=== PATIENT | male | born 1980 | race Asian ===

== ENCOUNTER 2020-08-03 12:32 | Outpatient (REF) | payer OTHER, SELFPAY ==
--- NOTE | 2020-08-03 12:41 | US_ITS ---
EXAMINATION: UNILATERAL TRIPLEX SCANNING OF THE LEFT LOWER EXTREMITY CLINICAL INFORMATION: Left lower extremity swelling. History of DVT COMPARISON: 10/30/2019 TECHNIQUE: Color-flow triplex imaging with spectral analysis and compression Doppler were performed on the left lower extremity. FINDINGS: Respiratory variation, normal compression and augmented flow are noted throughout the lower extremity. The visualized common femoral vein, superficial femoral vein, profunda femoral vein, popliteal vein and mid calf peroneal and posterior tibial venous segments show no evidence of deep venous thrombosis. There is no Loredo's cyst. IMPRESSION: Chronic changes of the femoral vein which may represent recanalization from previous thrombosis. This does not appear significantly changed. No acute deep venous thrombosis.
== END 2020-08-03 12:33 | disposition home or self-care (01) ==
LOC: HO.US 12:32
PROVIDERS: Visit Provider Internal Medicine Medical Oncology
DX: M79.89 Other specified soft tissue disorders (principal); M79.605 Pain in left leg; Z86.718 Personal history of other venous thrombosis and embolism
CPT/HCPCS: 93971

== ENCOUNTER 2020-09-06 10:42 | Outpatient (REF) | payer OTHER, SELFPAY ==
[2020-09-06 14:47] LABS: Cholesterol 124 mg/dL; HDL Cholesterol 37 mg/dL; LDL Cholesterol Calculated 65 mg/dl; Triglycerides 114 mg/dL
== END 2020-09-06 10:43 | disposition home or self-care (01) ==
LOC: HO.HMGCLDS 10:42
PROVIDERS: PCP Nurse Practitioner Family; Visit Provider Nurse Practitioner Family
DX: E78.5 Hyperlipidemia, unspecified (principal)
CPT/HCPCS: 80061

== ENCOUNTER 2021-03-10 11:41 | Outpatient (REF) | payer OTHER, SELFPAY ==
--- NOTE | ~2021-03-10 | US_ITS ---
EXAMINATION: US VENOUS ULTRASOUND WITH DOPPLER LOWER EXTREMITY, BILATERAL CLINICAL INFORMATION: Bilateral leg pain and swelling. COMPARISON: None TECHNIQUE: Ultrasound of the deep veins is performed from the hip to the calf with compression sonography and color and pulse Doppler assessment. Spectral analysis with color-flow imaging is performed. FINDINGS: RIGHT: There is normal venous compression and respiratory variation and augmented flow. The visualized common femoral vein, superficial femoral vein, profunda femoral vein, popliteal vein, and the trifurcation region shows no evidence of deep venous thrombosis. There is no significant popliteal fossa cyst. LEFT: There is normal venous compression and respiratory variation and augmented flow. The visualized common femoral vein, superficial femoral vein, and profunda small maintained shows no evidence of deep venous thrombosis. There are chronic changes in the left profunda and femoral veins proximal to distal thigh which appear to have progressed since the last exam. There is acute DVT in the popliteal vein not previously seen. There is no significant popliteal fossa cyst. If the patient's symptoms persist, followup ultrasound in 5 days 7 days might be of value to exclude proximal propagation from a non-visualized calf vein. US/US venous duplex LE BI IMPRESSION: No DVT demonstrated in the right lower extremity. There is chronic DVT in the left profunda and femoral vein proximal to thigh which appears to have progressed since the previous study. There is acute thrombus in the left popliteal vein, not previously seen. Preliminary results were called to Dr. Sanders by phone at 1:40 PM. Patient was directed to her office subsequently.
== END 2021-03-10 11:42 | disposition home or self-care (01) ==
LOC: HO.US 11:41
PROVIDERS: Visit Provider Internal Medicine Medical Oncology
DX: I82.402 Acute embolism and thrombosis of unspecified deep veins of left lower extremity (principal); Z86.718 Personal history of other venous thrombosis and embolism
CPT/HCPCS: 93970

== ENCOUNTER 2021-03-30 08:19 | Outpatient (REF) | payer OTHER, SELFPAY ==
[2021-03-30 12:22] LABS: Alanine Aminotransferase 53 U/L (0-40); Albumin Level 4.5 g/dL (3.5-5.0); Alkaline Phosphatase 84 U/L (39-117); Anion Gap 12 (12-20); Aspartate Amino Transferase 27 U/L (5-37); Bilirubin Total 0.8 mg/dL (0.0-1.0); Blood Urea Nitrogen 12 mg/dL (9-16); Calcium 9.4 mg/dL (8.4-10.2); Carbon Dioxide 28 mmol/L (22-29); Chloride 105 mmol/L (96-108); Cholesterol 186 mg/dL; Estimated Glomerular Filt Rate > 60; Glucose Fasting 101 mg/dL (60-99); HDL Cholesterol 36 mg/dL; LDL Cholesterol Calculated 106 mg/dl; Potassium 4.5 mmol/L (3.3-5.1); Sodium 140 mmol/L (135-145); Total Protein 7.6 g/dL (6.5-8.0); Triglycerides 220 mg/dL
[2021-03-30 12:31] LABS: TSH reflex Free T4 2.68 uIU/mL (0.32-4.0)
[2021-04-04 01:26] LABS: Testosterone, Total 277 ng/dL (250-1100)
== END 2021-03-30 08:20 | disposition home or self-care (01) ==
LOC: HO.HMGCLDS 08:19
PROVIDERS: PCP Nurse Practitioner Family; Visit Provider Nurse Practitioner Family
DX: Z00.00 Encounter for general adult medical examination without abnormal findings (principal); R68.82 Decreased libido
CPT/HCPCS: 36415; 80053; 80061; 84403; 84443

== ENCOUNTER 2021-04-04 11:42 | Outpatient (REF) | payer OTHER, SELFPAY ==
[2021-04-04 14:10] LABS: MANUAL DIFF FLAG NO
[2021-04-04 14:19] LABS: Basophils Absolute Auto 0.1 X10*3/uL (0.0-0.2); Basophils Percent Auto 0.7 % (0-2); Eosinophils Absolute Auto 0.2 X10*3/uL (0.0-0.4); Eosinophils Percent Auto 2.9 % (0-4); Hematocrit 44.5 % (42-52); Hemoglobin 15.3 g/dl (14.0-18.0); Imm Gran Abs Auto 0.05 X10*3/uL (0.00-0.03); Imm Gran Pct Auto 0.6 % (0.0-0.4); Lymphocytes Absolute Auto 2.1 X10*3/uL (1.2-4.9); Lymphocytes Percent Auto 25.8 % (20-40); Mean Corpuscular HGB Conc 34.4 g/dl (31.0-36.0); Mean Corpuscular Hemoglobin 29.7 pg (27.0-33.0); Mean Corpuscular Volume 86.4 fL (80-98); Mean Platelet Volume 12.1 fL (9.4-12.4); Monocytes Absolute Auto 0.7 X10*3/uL (0.1-1.2); Monocytes Percent Auto 8.3 % (2-11); Neutrophils Absolute Auto 5.1 X10*3/uL (2.0-8.3); Neutrophils Percent Auto 61.7 % (45-73); Platelet Count 219 X10*3/uL (160-400); Red Blood Count 5.15 X10*6/uL (4.60-5.80); Red Cell Distribution Width 12.7 % (11.0-16.0); White Blood Count 8.2 X10*3/uL (4.8-10.8)
[2021-04-04 14:31] LABS: D Dimer < 200 NG/ML
[2021-04-04 14:42] LABS: Alanine Aminotransferase 44 U/L (0-40); Albumin Level 4.3 g/dL (3.5-5.0); Alkaline Phosphatase 87 U/L (39-117); Anion Gap 13 (12-20); Aspartate Amino Transferase 25 U/L (5-37); Bilirubin Total 0.7 mg/dL (0.0-1.0); Blood Urea Nitrogen 13 mg/dL (9-16); Calcium 9.5 mg/dL (8.4-10.2); Carbon Dioxide 26 mmol/L (22-29); Chloride 103 mmol/L (96-108); Estimated Glomerular Filt Rate > 60; Glucose Random 176 mg/dL (60-115); Sodium 138 mmol/L (135-145); Total Protein 7.5 g/dL (6.5-8.0)
[2021-04-05 09:26] LABS: HBS Num1 325.83 mIU/mL (0-7.99); Hepatitis A Antibody IgM 0.79 Index (0-0.79); ~Hepatitis A Antibody IgM Nonreactive (Nonreactive); ~Hepatitis B Surface Antibody REACTIVE (Nonreactive)
[2021-04-05 10:02] LABS: HBc Num1 0.14 S/CO (0.00-0.79); Hepatitis B Core Antibody Nonreactive (Nonreactive); Hepatitis B Surface Antigen Negative (Negative); ~HepC Num1 0.11 S/CO (0.00-0.79); ~Hepatitis C Antibody Nonreactive (Nonreactive)
== END 2021-04-04 11:43 | disposition home or self-care (01) ==
LOC: HO.HMGCLDS 11:42
PROVIDERS: Internal Medicine Medical Oncology; PCP Nurse Practitioner Family; Visit Provider Nurse Practitioner Family
DX: I82.4Z9 Acute embolism and thrombosis of unspecified deep veins of unspecified distal lower extremity (principal); R74.8 Abnormal levels of other serum enzymes
CPT/HCPCS: 36415; 80053; 85025; 85379; 86704; 86706; 86709; 86803; 87340

== ENCOUNTER 2021-04-05 10:32 | Outpatient (REF) | payer OTHER, SELFPAY ==
--- NOTE | ~2021-04-05 | US_ITS ---
EXAMINATION: US ABDOMEN COMPLETE CLINICAL INFORMATION: Elevated liver enzymes. COMPARISON: CTA chest 05/05/2018 TECHNIQUE: Real-time imaging of the abdominal viscera. FINDINGS: PANCREAS: Normal. ABDOMINAL AORTA: The proximal, mid, and distal segments are normal in caliber. INFERIOR VENA CAVA: Visualized portions are normal. LIVER: Diffuse increased hepatic echogenicity. No focal hepatic lesion. There is no intrahepatic biliary duct dilatation seen. GALLBLADDER: Normal. The gallbladder is physiologically distended without evidence of stones, sludge, polyps, wall thickening or pericholecystic fluid. COMMON BILE DUCT: Normal in caliber measuring 0.40 cm in diameter. RIGHT KIDNEY: Normal. No hydronephrosis. No renal calculi or focal parenchymal lesions. The kidney measures 11.9 cm in maximum dimension. LEFT KIDNEY: Normal. No hydronephrosis. No renal calculi or focal parenchymal lesions. The kidney measures 11.6 cm in maximum dimension. SPLEEN: Normal. The spleen measures 11.1 cm in maximum dimension. FREE FLUID: None. US/US abdomen complete IMPRESSION: 1. There is generalized increase in hepatic echotexture, consistent with fatty infiltration or hepatocellular disease. Please correlate clinically. No focal hepatic mass or intrahepatic biliary duct dilatation is seen. 2. Otherwise unremarkable study.
== END 2021-04-05 10:33 | disposition home or self-care (01) ==
LOC: HO.HMGCX 10:32
PROVIDERS: PCP Internal Medicine; Visit Provider Nurse Practitioner Family
DX: R74.8 Abnormal levels of other serum enzymes (principal)
CPT/HCPCS: 76700

== ENCOUNTER 2021-06-02 13:45 | Outpatient (REF) | payer MEDICAID, SELFPAY ==
--- NOTE | ~2021-06-02 | US_ITS ---
EXAMINATION: US VENOUS ULTRASOUND WITH DOPPLER LOWER EXTREMITY, LEFT CLINICAL INFORMATION: Recurrent DVT follow-up. COMPARISON: March 10, 2021 and studies dating back to March 05, 2017 TECHNIQUE: Ultrasound of the deep veins is performed from the hip to the calf with compression sonography and color and pulse Doppler assessment. Spectral analysis with color-flow imaging is performed. FINDINGS: There is normal venous compression and respiratory variation and augmented flow. There are changes of chronic deep venous thrombosis seen within the proximal superficial femoral vein and extending to the popliteal vein showing wall thickening and synechiae. No evidence of acute deep venous thrombosis. There is no significant popliteal fossa cyst. No popliteal artery aneurysm. US/US venous duplex LE LT IMPRESSION: No acute DVT demonstrated in the left lower extremity. Findings consistent with old left lower extremity DVT.
== END 2021-06-02 13:46 | disposition home or self-care (01) ==
LOC: HO.HMGCX 13:45
PROVIDERS: PCP Nurse Practitioner Family; Visit Provider Internal Medicine Medical Oncology
DX: I82.4Z9 Acute embolism and thrombosis of unspecified deep veins of unspecified distal lower extremity (principal)
CPT/HCPCS: 93971

== ENCOUNTER → 2021-06-27 14:47 | Outpatient (BNVA) | payer OTHER, SELFPAY | PROVIDERS: PCP Nurse Practitioner Family; Visit Provider Internal Medicine | DX: Z86.718 Personal history of other venous thrombosis and embolism (principal); Z51.81 Encounter for therapeutic drug level monitoring; Z79.01 Long term (current) use of anticoagulants | CPT/HCPCS: 85610; 99202 ==

== ENCOUNTER → 2021-06-30 14:42 | Outpatient (BNVA) | payer OTHER, SELFPAY | PROVIDERS: PCP Nurse Practitioner Family; Visit Provider Internal Medicine | DX: Z86.718 Personal history of other venous thrombosis and embolism (principal); Z51.81 Encounter for therapeutic drug level monitoring; Z79.01 Long term (current) use of anticoagulants | CPT/HCPCS: 85610; 99211 ==

== ENCOUNTER → 2021-07-04 14:05 | Outpatient (BNVA) | payer OTHER, SELFPAY | PROVIDERS: PCP Nurse Practitioner Family; Visit Provider Internal Medicine | DX: Z86.718 Personal history of other venous thrombosis and embolism (principal); Z51.81 Encounter for therapeutic drug level monitoring; Z79.01 Long term (current) use of anticoagulants | CPT/HCPCS: 85610; 99211 ==

== ENCOUNTER → 2021-07-06 08:43 | Outpatient (BNVA) | payer OTHER, SELFPAY | PROVIDERS: PCP Nurse Practitioner Family; Visit Provider Internal Medicine | DX: Z86.718 Personal history of other venous thrombosis and embolism (principal); Z51.81 Encounter for therapeutic drug level monitoring; Z79.01 Long term (current) use of anticoagulants | CPT/HCPCS: 85610; 99211 ==

== ENCOUNTER → 2021-07-10 13:54 | Outpatient (BNVA) | payer OTHER, SELFPAY | PROVIDERS: PCP Nurse Practitioner Family; Visit Provider Internal Medicine | DX: Z86.718 Personal history of other venous thrombosis and embolism (principal); Z51.81 Encounter for therapeutic drug level monitoring; Z79.01 Long term (current) use of anticoagulants | CPT/HCPCS: 85610; 99211 ==

== ENCOUNTER → 2021-07-17 08:32 | Outpatient (BNVA) | payer OTHER, SELFPAY | PROVIDERS: PCP Nurse Practitioner Family; Visit Provider Internal Medicine | DX: Z86.718 Personal history of other venous thrombosis and embolism (principal); Z51.81 Encounter for therapeutic drug level monitoring; Z79.01 Long term (current) use of anticoagulants | CPT/HCPCS: 85610; 99211 ==

== ENCOUNTER → 2021-07-27 08:21 | Outpatient (BNVA) | payer OTHER, SELFPAY | PROVIDERS: PCP Nurse Practitioner Family; Visit Provider Internal Medicine | DX: Z86.718 Personal history of other venous thrombosis and embolism (principal); Z51.81 Encounter for therapeutic drug level monitoring; Z79.01 Long term (current) use of anticoagulants | CPT/HCPCS: 85610; 99211 ==

== ENCOUNTER → 2021-08-10 09:09 | Outpatient (BNVA) | payer OTHER, SELFPAY | PROVIDERS: PCP Nurse Practitioner Family; Visit Provider Internal Medicine | DX: Z86.718 Personal history of other venous thrombosis and embolism (principal); Z51.81 Encounter for therapeutic drug level monitoring; Z79.01 Long term (current) use of anticoagulants | CPT/HCPCS: 85610; 99211 ==

== ENCOUNTER → 2021-08-31 09:17 | Outpatient (BNVA) | payer OTHER, SELFPAY | PROVIDERS: PCP Nurse Practitioner Family; Visit Provider Internal Medicine | DX: Z86.718 Personal history of other venous thrombosis and embolism (principal); Z51.81 Encounter for therapeutic drug level monitoring; Z79.01 Long term (current) use of anticoagulants | CPT/HCPCS: 85610; 99211 ==

== ENCOUNTER → 2021-10-02 08:55 | Outpatient (BNVA) | payer OTHER, MEDICAID, SELFPAY | PROVIDERS: PCP Nurse Practitioner Family; Visit Provider Internal Medicine | DX: Z86.718 Personal history of other venous thrombosis and embolism (principal); Z51.81 Encounter for therapeutic drug level monitoring; Z79.01 Long term (current) use of anticoagulants | CPT/HCPCS: 85610; 99211 ==

== ENCOUNTER → 2021-10-30 09:05 | Outpatient (BNVA) | payer OTHER, SELFPAY | PROVIDERS: PCP Nurse Practitioner Family; Visit Provider Internal Medicine | DX: Z86.718 Personal history of other venous thrombosis and embolism (principal); Z51.81 Encounter for therapeutic drug level monitoring; Z79.01 Long term (current) use of anticoagulants | CPT/HCPCS: 85610; 99211 ==

== ENCOUNTER → 2021-12-13 14:32 | Outpatient (BNVA) | payer OTHER, SELFPAY | PROVIDERS: PCP Nurse Practitioner Family; Visit Provider Internal Medicine | DX: Z86.718 Personal history of other venous thrombosis and embolism (principal); Z51.81 Encounter for therapeutic drug level monitoring; Z79.01 Long term (current) use of anticoagulants | CPT/HCPCS: 85610; 99211 ==

== ENCOUNTER 2021-12-14 15:40 | Outpatient (RCR) | payer OTHER, SELFPAY ==
[2020-09-02 16:02] VITALS: BP 120/59; PULSE 83; RESP 12; TEMP 36.8; O2SAT 97; BMI 31.3
--- NOTE | 2020-09-02 16:12 | P.PNHO_ITS ---
Medical Summary - Medical Summary Chief complaint: Follow-up for: Left lower extremity DVT. Medical Summary: DIAGNOSIS: LEFT LOWER EXTREMITY DVT. CURRENT THERAPY: Lovenox 1 milligram/kilogram, started July 31. Repeat ultrasound October 30 revealed: Continued chronic changes of DVT in the femoral and popliteal vein which appears recanalized and stable in appearance. No superimposed acute finding is seen. Switched to Eliquis October 30, 2019. Interval History Interval history: This is a pleasant 40-year-old gentleman, here for a follow-up visit. He tells me he has been doing really well. He denies any pain in his leg, at rest. Most of his previous symptoms related to post phlebitic syndrome have subsided. Only complaint he has is that when he is standing at work for more than 5 hours his left leg starts to hurt. He has actually cut back to working 3 days a week. He is quite active. Denies easy fatigability. No headache no dizziness. He denies chest pain or trouble breathing. No abdominal pain nausea vomiting heartburn indigestion. His bowels are moving without any gross blood in it. He enjoys a good appetite. He has gained some weight. He is in good spirits. Rest of the review of systems is unremarkable. Previous history: Back in February, he returned from [place] on a charted flight with [employer] air service. He had just gone for a month, however he ended up staying 2 months, on account of the lock-down. They mostly stayed home bound. Review of Systems - Constitutional Reports system reviewed and no additional complaints, except as documented, Denies fatigue, Denies fever(s) - Eyes Reports system reviewed and no additional complaints, except as documented - ENT Reports system reviewed and no additional complaints, except as documented - Cardiovascular Reports system reviewed and no additional complaints, except as documented, Reports leg pain with activity, Reports leg sores - Respiratory Reports no additional respiratory complaints - Gastrointestinal Reports system reviewed and no additional complaints, except as documented - Genitourinary Genitourinary: Reports no additional male genitourinary complaints - Musculoskeletal Reports system reviewed and no additional complaints, except as documented - Integumentary/Breasts Skin/Breast: Reports no additional skin complaints - Neurologic Reports system reviewed and no additional complaints, except as documented - Psychiatric Reports system reviewed and no additional complaints, except as documented - Endocrine Reports no additional endocrine complaints - Hematologic/Lymphatic Reports system reviewed and no additional complaints, except as documented - Allergic/Immunologic Reports system reviewed and no additional complaints, except as documented [facility] Medical History: Medical History (Last Updated 09/02/20 @ 08:59 by Jennifer Rees) Antithrombin III deficiency Lower leg DVT (deep venous thrombosis) Family History: Family History (Last Updated 09/02/20 @ 16:05 by Jennifer Rees) Father DVT (deep venous thrombosis) Brother DVT (deep venous thrombosis) Cancer Home Medications and Allergies Home Medications Medication Instructions Recorded Confirmed Type apixaban [Eliquis] 1 tab PO BID 09/02/20 09/02/20 History rosuvastatin 1 tab PO DAILY 09/02/20 09/02/20 History tramadol 1 tab PO BID PRN 09/02/20 09/02/20 History Allergies Allergy/AdvReac Type Severity Reaction Status Date / Time No Known Allergies Allergy Unverified 07/14/20 19:16 [No Known Allergies*] Exam Vital signs: Vital Signs Temp 98.2 F 09/02/20 16:02 Pulse 83 09/02/20 16:02 Resp 12 09/02/20 16:02 BP 120/59 L 09/02/20 16:02 Pulse Ox 97 09/02/20 16:02 Intake & Output 09/01/20 09/02/20 09/02/20 18:59 06:59 18:59 Other: Weight 92 kg Weight 92 kg Body Mass Index 31.3 - Constitutional Present: no acute distress - Routine HEENT Exam Head: Present: normal inspection ENT: Present: mucous membranes moist - Routine Respiratory Exam Present: CTAB - Routine Cardiovascular Exam Cardiovascular: Present: RRR, S1, S2 - Routine Abdominal Exam Present: soft, nontender - Routine Rectal Exam Patient deferred: digital exam - Routine Extremities Exam Present: nontender - Routine Neurological Exam Present: alert, oriented X3 - Detailed Neurological Exam: Coma Scale Eye Opening: Spontaneous (4) Verbal Response: Oriented (5) - Routine Psychiatric Exam Present: normal affect Data - Labs CBC & Chem 7: 09/02/20 16:30 09/02/20 16:30 Progress Note: A/P (1) Left leg DVT Status: Acute Assessment and plan: This is a 40 year-old gentleman with left leg DVT diagnosed in February 2017, which was unprovoked. He has been diagnosed with Antithrombin III Deficiency. Repeat lower extremity Doppler in August 2017 showed recanalization of the clot. Ultrasound of the leg from 07/04/18 revealed: Chronic DVT with recanalized mid to distal superficial femoral vein, popliteal vein and visualized portion of the peroneal vein. No evidence of acute or occlusive deep vein thrombosis noted in the left lower extremity. Stable clot. He also has a history of postphlebitic syndrome for which he is on Tramadol 50 mg one to 2 tablets daily. He was referred to vascular surgery for a consultation. They did not advise anything new. I gave him Sigvera's stockings with better measurements. He has been maintained on long-term anticoagulation. He was on Xarelto Xarelto 20 mg once a day. In July,, he presented with pain and swelling of left lower extremity. Ultrasound of the leg revealed a new DVT. He was started on Lovenox. Repeat ultrasound from October 30 revealed: Continued chronic changes of DVT in the femoral and popliteal vein which appears recanalized and stable in appearance. No superimposed acute finding is seen. He wanted to be switched to an oral agent, the Lovenox was causing lots of pain and bruising of the belly. He was started on Eliquis, October 30, 2019. He is so far tolerating it well. He is clinically doing very well. Denies further pain in his leg. Ddimer is <200. Recent ultrasound of the left lower extremity revealed: IMPRESSION: Chronic changes of the femoral vein which may represent recanalization from previous thrombosis. This does not appear significantly changed. No acute deep venous thrombosis. This is reassuring. PLAN: He will continue to take the Eliquis long-term. A prescription was sent to his pharmacy. I will follow-up on D-dimer level. He will return in 6 months for a follow-up visit. Thank you, CC: Dr. Beronica Woods. Dr. Zuluaga. Code Status FULL CODE - Time Spent With Patient Total time spent is greater than 50% in coordination of care (as documented) at patient's floor/unit and/or counseling patient: 25 - 35 minutes
[2020-09-02 16:32] LABS: MANUAL DIFF FLAG NO
[2020-09-02 16:55] LABS: Basophils Absolute Auto 0.1 X10*3/uL (0.0-0.2); Basophils Percent Auto 0.8 % (0-2); Eosinophils Absolute Auto 0.3 X10*3/uL (0.0-0.4); Eosinophils Percent Auto 3.5 % (0-4); Hematocrit 43.4 % (42-52); Imm Gran Abs Auto 0.04 X10*3/uL (0.00-0.03); Imm Gran Pct Auto 0.5 % (0.0-0.4); Lymphocytes Absolute Auto 2.4 X10*3/uL (1.2-4.9); Lymphocytes Percent Auto 27.2 % (20-40); Mean Corpuscular HGB Conc 34.6 g/dl (31.0-36.0); Mean Corpuscular Hemoglobin 29.4 pg (27.0-33.0); Mean Corpuscular Volume 84.9 fL (80-98); Mean Platelet Volume 11.3 fL (9.4-12.4); Monocytes Absolute Auto 0.7 X10*3/uL (0.1-1.2); Monocytes Percent Auto 8.3 % (2-11); Neutrophils Absolute Auto 5.2 X10*3/uL (2.0-8.3); Neutrophils Percent Auto 59.7 % (45-73); Platelet Count 223 X10*3/uL (160-400); Red Blood Count 5.11 X10*6/uL (4.60-5.80); Red Cell Distribution Width 12.3 % (11.0-16.0); White Blood Count 8.8 X10*3/uL (4.8-10.8)
[2020-09-02 17:02] LABS: D Dimer < 200 NG/ML
[2020-09-02 17:10] LABS: Alanine Aminotransferase 39 U/L (0-40); Albumin Level 4.5 g/dL (3.5-5.0); Alkaline Phosphatase 79 U/L (39-117); Anion Gap 9 (12-20); Aspartate Amino Transferase 24 U/L (5-37); Bilirubin Total 0.6 mg/dL (0.0-1.0); Blood Urea Nitrogen 12 mg/dL (9-16); Calcium 8.6 mg/dL (8.4-10.2); Carbon Dioxide 30 mmol/L (22-29); Chloride 104 mmol/L (96-108); Creatinine Clr Calc Pharmacy 124.5; Estimated Glomerular Filt Rate > 60; Glucose Random 155 mg/dL (60-115); Sodium 139 mmol/L (135-145); Total Protein 7.4 g/dL (6.5-8.0)
--- NOTE | 2021-03-10 11:00 | P.PNHO_ITS ---
Medical Summary - Medical Summary Date of Service: 03/10/21 Chief complaint: Left lower extremity pain. History of recurrent DVT. Medical Summary: DIAGNOSIS: LEFT LOWER EXTREMITY DVT. CURRENT THERAPY: Lovenox 1 milligram/kilogram, started July 31. Repeat ultrasound October 30 revealed: Continued chronic changes of DVT in the femoral and popliteal vein which appears recanalized and stable in appearance. No superimposed acute finding is seen. Switched to Eliquis October 30, 2019. Interval History Interval history: This is a pleasant 40-year-old gentleman, here for a follow-up visit. He tells me that lately, he has noted increasing pain in his left leg. The swelling still comes and goes. He gets some pain on the right leg on occasion. He has actually cut back to working 3 days a week. He tries to be quite active. Denies easy fatigability. No headache no dizziness. He denies chest pain or trouble breathing. No abdominal pain nausea vomiting heartburn indigestion. His bowels are moving without any gross blood in it. He enjoys a good appetite. He has gained some weight. He is in good spirits. Rest of the review of systems is unremarkable. Previous history: Back in February of last year, he returned from [place] on a charted flight with [employer] air service. He had just gone for a month, however he ended up staying 2 months, on account of the lock-down. They mostly stayed home bound. Review of Systems - Constitutional Reports system reviewed and no additional complaints, except as documented - Eyes Reports system reviewed and no additional complaints, except as documented - ENT Reports system reviewed and no additional complaints, except as documented - Cardiovascular Reports system reviewed and no additional complaints, except as documented - Respiratory Reports no additional respiratory complaints - Gastrointestinal Reports system reviewed and no additional complaints, except as documented - Genitourinary Genitourinary: Reports no additional male genitourinary complaints - Musculoskeletal Reports system reviewed and no additional complaints, except as documented - Integumentary/Breasts Skin/Breast: Reports no additional skin complaints - Neurologic Reports system reviewed and no additional complaints, except as documented - Psychiatric Reports system reviewed and no additional complaints, except as documented - Endocrine Reports no additional endocrine complaints - Hematologic/Lymphatic Reports system reviewed and no additional complaints, except as documented - Allergic/Immunologic Reports system reviewed and no additional complaints, except as documented [facility] Medical History: Medical History (Last Reviewed 03/10/21 @ 11:22 by Elaine Rubio) Antithrombin III deficiency Dyslipidemia Lower leg DVT (deep venous thrombosis) Functional capacity: independent ambulation Patient : No Family History: Family History (Last Reviewed 03/10/21 @ 11:22 by Elaine Rubio) Father DVT (deep venous thrombosis) Brother DVT (deep venous thrombosis) Cancer Social History: Social History (Last Updated 03/10/21 @ 11:23 by Elaine Rubio) Alcohol History: Alcohol intake: never Alcohol History Details: Alcohol intake frequency: does not drink Tobacco History: Smoking Status: Current some day smoker Oncology Screenings - ECOG Performance Status ECOG Performance Status: 0 Home Medications and Allergies Home Medications Medication Instructions Recorded Confirmed Type tramadol 1 tab PO BID PRN 09/02/20 09/02/20 History Allergies Allergy/AdvReac Type Severity Reaction Status Date / Time No Known Allergies Allergy Unverified 07/14/20 19:16 [No Known Allergies*] Exam Vital signs: Vital Signs Temp 98.2 F 09/02/20 16:02 Pulse 83 09/02/20 16:02 Resp 12 09/02/20 16:02 BP 120/59 L 09/02/20 16:02 Pulse Ox 97 09/02/20 16:02 Weight 92 kg Body Mass Index 31.3 - Constitutional Present: no acute distress - Routine HEENT Exam Head: Present: normal inspection Eye: Present: normal appearance ENT: Present: mucous membranes moist - Routine Neck Exam Present: full ROM - Routine Respiratory Exam Present: CTAB - Routine Cardiovascular Exam Cardiovascular: Present: RRR, S1, S2 - Routine Abdominal Exam Present: soft, nontender - Routine Extremities Exam Present: nontender - Routine Back/Spine/Pelvis Exam Back/Spine: Present: full ROM - Routine Skin Exam Present: intact - Routine Neurological Exam Present: alert, oriented X3 - Detailed Neurological Exam: Coma Scale Eye Opening: Spontaneous (4) - Routine Psychiatric Exam Present: normal affect Data - Labs CBC & Chem 7: 03/10/21 11:06 03/10/21 11:06 Labs: 09/02/20 16:30 CMP [Comprehensive Met. Panel] Routine Complete Blood Count Auto Diff Routine D Dimer Routine Laboratory Last Values WBC 8.8 X10*3/uL (4.8-10.8) 09/02/20 16:30 RBC 5.11 X10*6/uL (4.60-5.80) 09/02/20 16:30 Hgb 15.0 g/dl (14.0-18.0) 09/02/20 16:30 Hct 43.4 % (42-52) 09/02/20 16:30 MCV 84.9 fL (80-98) 09/02/20 16:30 MCH 29.4 pg (27.0-33.0) 09/02/20 16:30 MCHC 34.6 g/dl (31.0-36.0) 09/02/20 16:30 RDW 12.3 % (11.0-16.0) 09/02/20 16:30 Plt Count 223 X10*3/uL (160-400) 09/02/20 16:30 MPV 11.3 fL (9.4-12.4) 09/02/20 16:30 Immature Gran % (Auto) 0.5 % (0.0-0.4) H 09/02/20 16:30 Neut % (Auto) 59.7 % (45-73) 09/02/20 16:30 Lymph % (Auto) 27.2 % (20-40) 09/02/20 16:30 [place] % (Auto) 8.3 % (2-11) 09/02/20 16:30 Eos % (Auto) 3.5 % (0-4) 09/02/20 16:30 Baso % (Auto) 0.8 % (0-2) 09/02/20 16:30 Lymph # (Auto) 2.4 X10*3/uL (1.2-4.9) 09/02/20 16:30 [place] # (Auto) 0.7 X10*3/uL (0.1-1.2) 09/02/20 16:30 Eos # (Auto) 0.3 X10*3/uL (0.0-0.4) 09/02/20 16:30 Baso # (Auto) 0.1 X10*3/uL (0.0-0.2) 09/02/20 16:30 Abs Immat Gran (auto) 0.04 X10*3/uL (0.00-0.03) H 09/02/20 16:30 Absolute Neuts (auto) 5.2 X10*3/uL (2.0-8.3) 09/02/20 16:30 Absolute Nucleated RBC 0.000 X10*3/uL (0.0-0.012) 09/02/20 16:30 Nucleated RBC % (auto) 0.0 /100WBC (0.0-0.2) 09/02/20 16:30 D-Dimer < 200 NG/ML 09/02/20 16:30 Sodium 139 mmol/L (135-145) 09/02/20 16:30 Potassium 4.0 mmol/l (3.3-5.1) 09/02/20 16:30 Chloride 104 mmol/L (96-108) 09/02/20 16:30 Carbon Dioxide 30 mmol/L (22-29) H 09/02/20 16:30 Anion Gap 9 (12-20) L 09/02/20 16:30 BUN 12 mg/dL (9-16) 09/02/20 16:30 Creatinine 0.87 mg/dL (0.5-1.4) 09/02/20 16:30 Estim Creat Clear Calc 124.5 09/02/20 16:30 Estimated GFR > 60 09/02/20 16:30 Random Glucose 155 mg/dL (60-115) H 09/02/20 16:30 Calcium 8.6 mg/dL (8.4-10.2) 09/02/20 16:30 Total Bilirubin 0.6 mg/dL (0.0-1.0) 09/02/20 16:30 AST 24 U/L (5-37) 09/02/20 16:30 ALT 39 U/L (0-40) 09/02/20 16:30 Alkaline Phosphatase 79 U/L (39-117) 09/02/20 16:30 Total Protein 7.4 g/dL (6.5-8.0) 09/02/20 16:30 Albumin 4.5 g/dL (3.5-5.0) 09/02/20 16:30 Progress Note: A/P (1) Left leg DVT Status: Acute Assessment and plan: This is a 40 year-old gentleman with left leg DVT diagnosed in February 2017, which was unprovoked. He has been diagnosed with Antithrombin III Deficiency. Repeat lower extremity Doppler in August 2017 showed recanalization of the clot. Ultrasound of the leg from 07/04/18 revealed: Chronic DVT with recanalized mid to distal superficial femoral vein, popliteal vein and visualized portion of the peroneal vein. No evidence of acute or occlusive deep vein thrombosis noted in the left lower extremity. Stable clot. He also has a history of postphlebitic syndrome for which he is on Tramadol 50 mg one to 2 tablets daily. He was referred to vascular surgery for a consultation. They did not advise anything new. I gave him Sigvera's stockings with better measurements. He has been maintained on long-term anticoagulation. He was on Xarelto Xarelto 20 mg once a day. In July,, he presented with pain and swelling of left lower extremity. Ultrasound of the leg revealed a new DVT. He was started on Lovenox. Repeat ultrasound from October 30 revealed: Continued chronic changes of DVT in the femoral and popliteal vein which appears recanalized and stable in appearance. No superimposed acute finding is seen. He wanted to be switched to an oral agent, the Lovenox was causing lots of pain and bruising of the belly. He was started on Eliquis, October 30, 2019. Ddimer is <200. Ultrasound of the left lower extremity in July, revealed: Chronic changes of the femoral vein which may represent recanalization from previous thrombosis. This does not appear significantly changed. No acute deep venous thrombosis. Today he comes in complaining of increasing pain in his left lower extremity. Occasional pain on the right as well. Ultrasound of both legs was ordered. This revealed: There is chronic DVT in the left profundus and femoral vein proximal to thigh which appears to have progressed since the previous study. There is acute thrombus in the left popliteal vein, not previously seen. I shared the results with him, after the ultrasound. Offered him parenteral anticoagulation. Discussed the pros and cons of Lovenox versus fondaparinux. He would like to use something that can be given once a day. PLAN: He will be started on fondaparinux. Will start him on 7.5 mg daily, according to his weight. First dose was given here. He tolerated it well. A prescription was sent to his pharmacy. I will follow-up on his ultrasound and D-dimer level. He will return in 3 months for a follow-up visit. Thank you, - Time Spent With Patient Total time spent is greater than 50% in coordination of care (as documented) at patient's floor/unit and/or counseling patient: 25 - 35 minutes
[2021-03-10 11:09] LABS: MANUAL DIFF FLAG NO
[2021-03-10 11:15] LABS: Basophils Absolute Auto 0.1 X10*3/uL (0.0-0.2); Basophils Percent Auto 0.7 % (0-2); Eosinophils Absolute Auto 0.3 X10*3/uL (0.0-0.4); Eosinophils Percent Auto 2.5 % (0-4); Hematocrit 42.6 % (42-52); Hemoglobin 14.8 g/dl (14.0-18.0); Imm Gran Abs Auto 0.04 X10*3/uL (0.00-0.03); Imm Gran Pct Auto 0.4 % (0.0-0.4); Lymphocytes Absolute Auto 3.1 X10*3/uL (1.2-4.9); Lymphocytes Percent Auto 28.8 % (20-40); Mean Corpuscular HGB Conc 34.7 g/dl (31.0-36.0); Mean Corpuscular Hemoglobin 29.7 pg (27.0-33.0); Mean Corpuscular Volume 85.5 fL (80-98); Neutrophils Absolute Auto 6.2 X10*3/uL (2.0-8.3); Neutrophils Percent Auto 58.6 % (45-73); Platelet Count 207 X10*3/uL (160-400); Red Blood Count 4.98 X10*6/uL (4.60-5.80); Red Cell Distribution Width 12.7 % (11.0-16.0); White Blood Count 10.6 X10*3/uL (4.8-10.8)
[2021-03-10 11:21] VITALS: BP 116/63; PULSE 84; RESP 12; TEMP 36.7; O2SAT 97; BMI 32.0
[2021-03-10 11:26] LABS: D Dimer < 200 NG/ML
[2021-03-10 11:39] LABS: Alanine Aminotransferase 38 U/L (0-40); Albumin Level 4.4 g/dL (3.5-5.0); Alkaline Phosphatase 92 U/L (39-117); Anion Gap 12 (12-20); Aspartate Amino Transferase 21 U/L (5-37); Bilirubin Total 0.5 mg/dL (0.0-1.0); Blood Urea Nitrogen 12 mg/dL (9-16); Calcium 9.3 mg/dL (8.4-10.2); Carbon Dioxide 27 mmol/L (22-29); Chloride 105 mmol/L (96-108); Creatinine Clr Calc Pharmacy 117.8; Estimated Glomerular Filt Rate > 60; Glucose Random 114 mg/dL (60-115); Potassium 4.5 mmol/L (3.3-5.1); Sodium 139 mmol/L (135-145); Total Protein 7.4 g/dL (6.5-8.0)
--- NOTE | 2021-03-10 11:51 | MHC.HEMONCMA ---
Pt presents to f/u on DVT. History reviewed and labs drawn. Pt was to go get U/S of L leg after visit.
[2021-03-10] MEDS: Fondaparinux Sodium 7.5 MG/0.6 ML SYRINGE SUBCUT (14:17)
--- NOTE | 2021-03-10 14:20 | MHC.HEMONC ---
Pt returned from US, has DVT. Arixtra injection given as ordered. Prescription sent to pt pharmacy. Pt is comfortable with giving injections at home, was on Lovenox previously. Follow up scheduled
[2021-06-05 09:14] VITALS: BP 121/78; PULSE 88; RESP 14; TEMP 36.4; O2SAT 97; BMI 32.3
--- NOTE | 2021-06-05 09:29 | PM.HEMONCPN ---
Medical Summary - Medical Summary Date of Service: 06/05/21 Medical Summary: DIAGNOSIS: LEFT LOWER EXTREMITY DVT. CURRENT THERAPY: Lovenox 1 milligram/kilogram, started July 31. Repeat ultrasound October 30 revealed: Continued chronic changes of DVT in the femoral and popliteal vein which appears recanalized and stable in appearance. No superimposed acute finding is seen. Switched to Eliquis October 30, 2019. Interval History Interval history: This is a pleasant 40-year-old gentleman, here for a follow-up visit. He tells me that lately, he has not noted much pain in his left leg. He does not have much swelling either. It comes and goes. However he is bothered by giving himself the shots. His belly is getting painful and hard. He is running out of sites, to use. He wants to come off the Arixtra. He tries to be quite active. Denies easy fatigability. No headache no dizziness. He denies chest pain or trouble breathing. No abdominal pain nausea vomiting heartburn indigestion. His bowels are moving without any gross blood in it. He enjoys a good appetite. He has gained some weight. He is in good spirits. Rest of the review of systems is unremarkable. Previous history: Back in February of 2020, he returned from [place] on a charted flight with [employer]. He had just gone for a month, however he ended up staying 2 months, on account of the lock-down. They mostly stayed home bound. Review of Systems - Constitutional Reports no additional constitutional complaints - Eyes Reports no additional eye complaints - ENT Reports no additional ear, nose, mouth, and throat complaints - Cardiovascular Reports no additional cardiovascular complaints - Respiratory Reports no additional respiratory complaints - Gastrointestinal Reports no additional gastrointestinal complaints, Reports abdominal pain Comments: From the injections. - Genitourinary Genitourinary: Reports no additional male genitourinary complaints - Musculoskeletal Reports no additional musculoskeletal complaints - Integumentary/Breasts Skin/Breast: Reports no additional skin complaints - Neurologic Reports no additional neurologic complaints - Psychiatric Reports no additional psychiatric complaints - Endocrine Reports no additional endocrine complaints - Hematologic/Lymphatic Reports no additional hematologic/lymphatic complaints - Allergic/Immunologic Reports no additional allergic/immunologic complaints REPLACED BY [facility] Medical History: Medical History (Last Reviewed 06/05/21 @ 09:16 by Jennifer Rees) Antithrombin III deficiency Dyslipidemia Lower leg DVT (deep venous thrombosis) Functional capacity: independent ambulation Patient : No Family History: Family History (Last Reviewed 06/05/21 @ 09:16 by Jennifer Rees) Father DVT (deep venous thrombosis) Brother DVT (deep venous thrombosis) Cancer Social History: Social History (Last Reviewed 06/05/21 @ 09:16 by Jennifer Rees) Alcohol History: Alcohol intake: never Alcohol History Details: Alcohol intake frequency: does not drink Tobacco History: Patient Tobacco Use Status: Current everyday Tobacco Tobacco use type: Cigarette Years Smoked: 22 years old e-Cigarette/Vaping Use: Never Used Substance Use History: Use of substances other than those prescribed or required for medical reasons: No Nutrition Assessment: Patient : No Oncology Screenings - ECOG Performance Status ECOG Performance Status: 0 Home Medications and Allergies Allergies Allergy/AdvReac Type Severity Reaction Status Date / Time No Known Allergies Allergy Unverified 03/29/21 13:37 [No Known Allergies*] Exam Vital signs: Vital Signs Temp 97.6 F 06/05/21 09:14 Pulse 88 06/05/21 09:14 Resp 14 06/05/21 09:14 BP 121/78 06/05/21 09:14 Pulse Ox 97 06/05/21 09:14 Intake & Output 06/04/21 06/05/21 06/05/21 18:59 06:59 18:59 Other: Weight 95.1 kg Weight in Grams 29443 Weight 95.1 kg Body Mass Index 32.3 - Constitutional Present: no acute distress - Routine HEENT Exam Head: Present: normal inspection Eye: Present: normal appearance ENT: Present: mucous membranes moist - Routine Neck Exam Present: full ROM - Routine Respiratory Exam Present: CTAB - Routine Cardiovascular Exam Cardiovascular: Present: RRR, S1, S2 - Routine Abdominal Exam Present: soft, nontender - Routine Extremities Exam Present: nontender - Routine Back/Spine/Pelvis Exam Back/Spine: Present: full ROM - Routine Skin Exam Present: intact - Routine Neurological Exam Present: alert, oriented X3 - Detailed Neurological Exam: Coma Scale Eye Opening: Spontaneous (4) - Routine Psychiatric Exam Present: normal affect Data - Labs CBC & Chem 7: 06/05/21 09:56 06/05/21 09:56 Labs: 09/02/20 16:30 CMP [Comprehensive Met. Panel] Routine Complete Blood Count Auto Diff Routine D Dimer Routine Laboratory Last Values WBC 8.8 X10*3/uL (4.8-10.8) 09/02/20 16:30 RBC 5.11 X10*6/uL (4.60-5.80) 09/02/20 16:30 Hgb 15.0 g/dl (14.0-18.0) 09/02/20 16:30 Hct 43.4 % (42-52) 09/02/20 16:30 MCV 84.9 fL (80-98) 09/02/20 16:30 MCH 29.4 pg (27.0-33.0) 09/02/20 16:30 MCHC 34.6 g/dl (31.0-36.0) 09/02/20 16:30 RDW 12.3 % (11.0-16.0) 09/02/20 16:30 Plt Count 223 X10*3/uL (160-400) 09/02/20 16:30 MPV 11.3 fL (9.4-12.4) 09/02/20 16:30 Immature Gran % (Auto) 0.5 % (0.0-0.4) H 09/02/20 16:30 Neut % (Auto) 59.7 % (45-73) 09/02/20 16:30 Lymph % (Auto) 27.2 % (20-40) 09/02/20 16:30 Oliver % (Auto) 8.3 % (2-11) 09/02/20 16:30 Eos % (Auto) 3.5 % (0-4) 09/02/20 16:30 Baso % (Auto) 0.8 % (0-2) 09/02/20 16:30 Lymph # (Auto) 2.4 X10*3/uL (1.2-4.9) 09/02/20 16:30 Oliver # (Auto) 0.7 X10*3/uL (0.1-1.2) 09/02/20 16:30 Eos # (Auto) 0.3 X10*3/uL (0.0-0.4) 09/02/20 16:30 Baso # (Auto) 0.1 X10*3/uL (0.0-0.2) 09/02/20 16:30 Abs Immat Gran (auto) 0.04 X10*3/uL (0.00-0.03) H 09/02/20 16:30 Absolute Neuts (auto) 5.2 X10*3/uL (2.0-8.3) 09/02/20 16:30 Absolute Nucleated RBC 0.000 X10*3/uL (0.0-0.012) 09/02/20 16:30 Nucleated RBC % (auto) 0.0 /100WBC (0.0-0.2) 09/02/20 16:30 D-Dimer < 200 NG/ML 09/02/20 16:30 Sodium 139 mmol/L (135-145) 09/02/20 16:30 Potassium 4.0 mmol/l (3.3-5.1) 09/02/20 16:30 Chloride 104 mmol/L (96-108) 09/02/20 16:30 Carbon Dioxide 30 mmol/L (22-29) H 09/02/20 16:30 Anion Gap 9 (12-20) L 09/02/20 16:30 BUN 12 mg/dL (9-16) 09/02/20 16:30 Creatinine 0.87 mg/dL (0.5-1.4) 09/02/20 16:30 Estim Creat Clear Calc 124.5 09/02/20 16:30 Estimated GFR > 60 09/02/20 16:30 Random Glucose 155 mg/dL (60-115) H 09/02/20 16:30 Calcium 8.6 mg/dL (8.4-10.2) 09/02/20 16:30 Total Bilirubin 0.6 mg/dL (0.0-1.0) 09/02/20 16:30 AST 24 U/L (5-37) 09/02/20 16:30 ALT 39 U/L (0-40) 09/02/20 16:30 Alkaline Phosphatase 79 U/L (39-117) 09/02/20 16:30 Total Protein 7.4 g/dL (6.5-8.0) 09/02/20 16:30 Albumin 4.5 g/dL (3.5-5.0) 09/02/20 16:30 Progress Note: A/P (1) Left leg DVT Status: Acute Assessment and plan: This is a 40 year-old gentleman with left leg DVT diagnosed in February 2017, which was unprovoked. He has been diagnosed with Antithrombin III Deficiency. Repeat lower extremity Doppler in August 2017 showed recanalization of the clot. Ultrasound of the leg from 07/04/18 revealed: Chronic DVT with recanalized mid to distal superficial femoral vein, popliteal vein and visualized portion of the peroneal vein. No evidence of acute or occlusive deep vein thrombosis noted in the left lower extremity. Stable clot. He also has a history of postphlebitic syndrome for which he is on Tramadol 50 mg one to 2 tablets daily. He was referred to vascular surgery for a consultation. They did not advise anything new. I gave him Sigvera's stockings with better measurements. He has been maintained on long-term anticoagulation. He was on Xarelto Xarelto 20 mg once a day. In July,, he presented with pain and swelling of left lower extremity. Ultrasound of the leg revealed a new DVT. He was started on Lovenox. Repeat ultrasound from October 30 revealed: Continued chronic changes of DVT in the femoral and popliteal vein which appears recanalized and stable in appearance. No superimposed acute finding is seen. He wanted to be switched to an oral agent, the Lovenox was causing lots of pain and bruising of the belly. He was started on Eliquis, October 30, 2019. Ddimer is <200. Ultrasound of the left lower extremity in July, revealed: Chronic changes of the femoral vein which may represent recanalization from previous thrombosis. This does not appear significantly changed. No acute deep venous thrombosis. Today he comes in complaining of increasing pain in his left lower extremity. Occasional pain on the right as well. Ultrasound of both legs was ordered. This revealed: There is chronic DVT in the left profundus and femoral vein proximal to thigh which appears to have progressed since the previous study. There is acute thrombus in the left popliteal vein, not previously seen. I shared the results with him, after the ultrasound. Offered him parenteral anticoagulation. Discussed the pros and cons of Lovenox versus fondaparinux. He wanted to be prescribed something that could be given once a day. He has been on Arixtra, 7.5 mg daily. However now he is getting tired of giving himself shots. He would like to get something oral if possible. Ddimer:<200. He had ultrasound of his left leg done on SaturdayJune 02. It revealed: No acute DVT demonstrated in the left lower extremity. Findings consistent with old left lower extremity DVT. He has failed Xarelto and Eliquis in the past. He has not been on warfarin. PLAN: I will switch him over to the warfarin with the fondaparinux bridge. He will start warfarin 5 mg daily, starting today. Will set up an appointment with the [facility]. They are busy. He will return here on for PT INR check. Will DC fondaparinux once INR is therapeutic. I will follow-up on his ultrasound and D-dimer level, in 3 months time. He will return in 3 months for a follow-up visit. Thank you, - Time Spent With Patient Time Spent with Patient (in minutes): 30
[2021-06-05 10:00] LABS: MANUAL DIFF FLAG NO
[2021-06-05 10:03] LABS: Basophils Absolute Auto 0.1 X10*3/uL (0.0-0.2); Basophils Percent Auto 0.6 % (0-2); Eosinophils Absolute Auto 0.3 X10*3/uL (0.0-0.4); Eosinophils Percent Auto 3.3 % (0-4); Hemoglobin 15.3 g/dl (14.0-18.0); Imm Gran Abs Auto 0.04 X10*3/uL (0.00-0.03); Imm Gran Pct Auto 0.5 % (0.0-0.4); Lymphocytes Absolute Auto 2.8 X10*3/uL (1.2-4.9); Lymphocytes Percent Auto 31.3 % (20-40); Mean Corpuscular HGB Conc 34.8 g/dl (31.0-36.0); Mean Corpuscular Hemoglobin 29.5 pg (27.0-33.0); Mean Corpuscular Volume 84.8 fL (80-98); Mean Platelet Volume 10.7 fL (9.4-12.4); Monocytes Absolute Auto 0.8 X10*3/uL (0.1-1.2); Monocytes Percent Auto 9.5 % (2-11); Neutrophils Absolute Auto 4.9 X10*3/uL (2.0-8.3); Neutrophils Percent Auto 54.8 % (45-73); Platelet Count 224 X10*3/uL (160-400); Red Blood Count 5.19 X10*6/uL (4.60-5.80); Red Cell Distribution Width 12.7 % (11.0-16.0); White Blood Count 8.9 X10*3/uL (4.8-10.8)
[2021-06-05 10:20] LABS: D Dimer < 200 NG/ML
[2021-06-05 10:29] LABS: Alanine Aminotransferase 41 U/L (0-40); Albumin Level 4.4 g/dL (3.5-5.0); Alkaline Phosphatase 81 U/L (39-117); Anion Gap 11 (12-20); Aspartate Amino Transferase 24 U/L (5-37); Bilirubin Total < 0.2 mg/dL (0.0-1.0); Blood Urea Nitrogen 12 mg/dL (9-16); Calcium 9.5 mg/dL (8.4-10.2); Carbon Dioxide 26 mmol/L (22-29); Chloride 105 mmol/L (96-108); Creatinine Clr Calc Pharmacy 118.3; Estimated Glomerular Filt Rate > 60; Glucose Random 103 mg/dL (60-115); Potassium 4.2 mmol/L (3.3-5.1); Sodium 138 mmol/L (135-145); Total Protein 7.6 g/dL (6.5-8.0)
--- NOTE | 2021-06-05 10:47 | MHC.HEMONCMA ---
Patient came in for a hem follow up, states that he is not doing well. States he has had a headache for 10 days now and that his stomach is very tender from the injections- he is wanting to try something different. Clinical summary was reviewed and updated. Patient had labs and will return in 2 months for a follow up. Dr Menard is switching Cricket to coumadin, they state they can not see him for 3 weeks. Form was filled out and faxed down. Awaiting for a date/time.
--- NOTE | 2021-11-07 09:24 | MHC.HEMONC ---
Nurse heard VM on scrip line from pt's spouse Shruti, stated that pt was out of refills for PO tramadol. Nurse checked w/ Dr. Menard, who said she had sent new scrip the previous day to [facility] on [facility] in [place]. Nurse called the number pt's spouse left in her VM, no answer, so nurse left VM informing her of new scrip, left CB # to call back the Hem/Onc clinic if she has any problems filling the scrip.
--- NOTE | 2021-12-14 15:42 | P.PNHO_ITS ---
Medical Summary - Medical Summary Date of Service: 12/14/21 Chief complaint: Follow-up for: Left lower extremity DVT. Hypercoagulable Medical Summary: DIAGNOSIS: LEFT LOWER EXTREMITY DVT. CURRENT THERAPY: Lovenox 1 milligram/kilogram, started July 31. Repeat ultrasound October 30 revealed: Continued chronic changes of DVT in the femoral and popliteal vein which appears recanalized and stable in appearance. No superimposed acute finding is seen. Switched to Eliquis October 30, 2019. Was on Arixtra. Switched to warfarin 06/17. Interval History Interval history: This is a pleasant 41 year-old gentleman, here for a follow-up visit. He had been on 7.5 mg of Coumadin daily. He used to have a therapeutic INR however yesterday when he went to the warfarin Clinic INR was down to 1.1. He was advised to go to 11.25 mg today and tomorrow. INR today was 1.3. He tells me that today, he noted pain in his left leg. It is located on the thigh and lower leg. He does get intermittent swelling of the leg but that is not new. It comes and goes. Denies any chest pain or trouble breathing. He tries to be quite active. Denies easy fatigability. No headache no dizziness. No abdominal pain nausea vomiting heartburn indigestion. His bowels are moving without any gross blood in it. He enjoys a good appetite. He has gained some weight. He is in good spirits. Rest of the review of systems is unremarkable. 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 Previous history: Back in February of 2020, he returned from [place] on a charted flight with [employer]. He had just gone for a month, however he ended up staying 2 months, on account of the lock-down. They mostly stayed home bound. Review of Systems - Constitutional Reports no additional constitutional complaints, Reports weight gain - Eyes Reports no additional eye complaints - ENT Reports no additional ear, nose, mouth, and throat complaints - Cardiovascular Reports no additional cardiovascular complaints - Respiratory Reports no additional respiratory complaints - Gastrointestinal Reports no additional gastrointestinal complaints - Genitourinary Genitourinary: Reports no additional male genitourinary complaints - Musculoskeletal Reports no additional musculoskeletal complaints Comments: Left lower extremity pain - Integumentary/Breasts Skin/Breast: Reports no additional skin complaints - Neurologic Reports no additional neurologic complaints - Psychiatric Reports no additional psychiatric complaints - Endocrine Reports no additional endocrine complaints - Hematologic/Lymphatic Reports no additional hematologic/lymphatic complaints - Allergic/Immunologic Reports no additional allergic/immunologic complaints [facility] Medical History: Medical History (Last Reviewed 12/14/21 @ 16:03 by Edi Law RN) Antithrombin III deficiency Dyslipidemia Lower leg DVT (deep venous thrombosis) Functional capacity: independent ambulation Patient : No Family History: Family History (Last Reviewed 12/14/21 @ 16:03 by Edi Law RN) Father DVT (deep venous thrombosis) Brother DVT (deep venous thrombosis) Cancer Social History: Social History (Last Reviewed 12/14/21 @ 16:03 by Edi Law RN) Tobacco History: Patient Tobacco Use Status: Current everyday Tobacco Tobacco use type: Cigarette Years Smoked: 22 years old e-Cigarette/Vaping Use: Never Used Oncology Screenings - ECOG Performance Status ECOG Performance Status: 0 Home Medications and Allergies Home Medications Medication Instructions Recorded Confirmed Type clotrimazole 1 % topical cream 1 appl TOPICAL DAILY 12/13/21 12/14/21 History Allergies Allergy/AdvReac Type Severity Reaction Status Date / Time No Known Allergies Allergy Verified 12/14/21 16:03 [No Known Allergies*] Exam Vital signs: Vital Signs Temp 97.6 F 06/05/21 09:14 Pulse 88 06/05/21 09:14 Resp 14 06/05/21 09:14 BP 121/78 06/05/21 09:14 Pulse Ox 97 06/05/21 09:14 Weight 95.1 kg BMI result Body Mass Index 32.3 - Constitutional Present: no acute distress - Routine HEENT Exam Head: Present: normal inspection Eye: Present: normal appearance ENT: Present: mucous membranes moist - Routine Neck Exam Present: full ROM - Routine Respiratory Exam Present: CTAB - Routine Cardiovascular Exam Cardiovascular: Present: RRR, S1, S2 - Routine Abdominal Exam Present: soft, nontender - Routine Extremities Exam Present: nontender Comments: Tenderness of the left leg. - Routine Back/Spine/Pelvis Exam Back/Spine: Present: full ROM - Routine Skin Exam Present: intact - Routine Neurological Exam Present: alert, oriented X3 - Detailed Neurological Exam: Coma Scale Eye Opening: Spontaneous (4) - Routine Psychiatric Exam Present: normal affect Data - Labs CBC & Chem 7: 12/14/21 15:49 12/14/21 15:49 Assessment and Plan Patient Active problem list reviewed?: Yes (1) Left leg DVT Status: Acute Assessment and plan: Lovenox This is a 40 year-old gentleman with left leg DVT diagnosed in February 2017, which was unprovoked. He has been diagnosed with Antithrombin III Deficiency. Repeat lower extremity Doppler in August 2017 showed recanalization of the clot. Ultrasound of the leg from 07/04/18 revealed: Chronic DVT with recanalized mid to distal superficial femoral vein, popliteal vein and visualized portion of the peroneal vein. No evidence of acute or occlusive deep vein thrombosis noted in the left lower extremity. Stable clot. He also has a history of postphlebitic syndrome for which he is on Tramadol 50 mg one to 2 tablets daily. He was referred to vascular surgery for a consultation. They did not advise anything new. I gave him Sigvera's stockings with better measurements. He has been maintained on long-term anticoagulation. He was on Xarelto Xarelto 20 mg once a day. In July,, he presented with pain and swelling of left lower extremity. Ultrasound of the leg revealed a new DVT. He was started on Lovenox. Repeat ultrasound from October 30 revealed: Continued chronic changes of DVT in the femoral and popliteal vein which appears recanalized and stable in appearance. No superimposed acute finding is seen. He wanted to be switched to an oral agent, the Lovenox was causing lots of pain and bruising of the belly. He was started on Eliquis, October 30, 2019. Ddimer is <200. Ultrasound of the left lower extremity in July, revealed: Chronic changes of the femoral vein which may represent recanalization from previous thrombosis. This does not appear significantly changed. No acute deep venous thrombosis. Today he comes in complaining of increasing pain in his left lower extremity. Occasional pain on the right as well. Ultrasound of both legs was ordered. This revealed: There is chronic DVT in the left profundus and femoral vein proximal to thigh which appears to have progressed since the previous study. There is acute thrombus in the left popliteal vein, not previously seen. I shared the results with him, after the ultrasound. Offered him parenteral anticoagulation. Discussed the pros and cons of Lovenox versus fondaparinux. He wanted to be prescribed something that could be given once a day. He has been on Arixtra, 7.5 mg daily. However now he is getting tired of giving himself shots. He would like to get something oral if possible. Ddimer:<200. He had ultrasound of his left leg done on SaturdayJune 02. It revealed: No acute DVT demonstrated in the left lower extremity. Findings consistent with old left lower extremity DVT. He has failed Xarelto and Eliquis in the past. He had not been on warfarin. I switched him over to the warfarin with the fondaparinux bridge. He started warfarin 5 mg daily starting in may. He tells me his INR was subtherapeutic yesterday and today. Warfarin dose was increased from 7.5-11.25 mg daily. Today he complains of pain in his leg. His labs are good. D-dimer: Less than 150. He was sent up for an ultrasound of his left lower extremity. Especially in view of the fact that he will be traveling soon. This revealed: Chronic LLE DVT, no acute DVT. PLAN: He was advised to switch over to Fondaparinux, to be on the safe side, since it would be hard to regulate the warfarin dose. He tells me he will be moving to [place] in a couple of weeks. I wish him the best of luck. If his INR is still subtherapeutic then will give him fondaparinux, for his trip. Thank you, - Time Spent With Patient Time Spent with Patient (in minutes): 30
[2021-12-14 15:50] LABS: MANUAL DIFF FLAG NO
[2021-12-14 16:00] LABS: Basophils Absolute Auto 0.1 X10*3/uL (0.0-0.2); Basophils Percent Auto 0.5 % (0-2); Eosinophils Absolute Auto 0.2 X10*3/uL (0.0-0.4); Eosinophils Percent Auto 2.3 % (0-4); Hematocrit 42.4 % (42.0-52.0); Hemoglobin 14.6 g/dl (14.0-18.0); Imm Gran Abs Auto 0.08 X10*3/uL (0.00-0.03); Imm Gran Pct Auto 0.8 % (0.0-0.4); Lymphocytes Absolute Auto 3.1 X10*3/uL (1.2-4.9); Lymphocytes Percent Auto 31.3 % (20-40); Mean Corpuscular HGB Conc 34.4 g/dl (31.0-36.0); Mean Corpuscular Volume 84.1 fL (80.0-98.0); Mean Platelet Volume 10.5 fL (9.4-12.4); Monocytes Absolute Auto 0.8 X10*3/uL (0.1-1.2); Monocytes Percent Auto 8.4 % (2-11); Neutrophils Absolute Auto 5.6 x10*3/uL (2.0-8.3); Neutrophils Percent Auto 56.7 % (45-73); Platelet Count 241 X10*3/uL (160-400); Red Blood Count 5.04 X10*6/uL (4.60-5.80); Red Cell Distribution Width 12.9 % (11.0-16.0); White Blood Count 9.8 X10*3/uL (4.8-10.8)
[2021-12-14 16:01] VITALS: BP 121/76; PULSE 93; RESP 17; TEMP 36.7; O2SAT 97; BMI 32.6
[2021-12-14 16:12] LABS: D Dimer High Sensitivity < 150 NG/ML
[2021-12-14 16:20] LABS: Alanine Aminotransferase 39 U/L (0-40); Albumin Level 4.4 g/dL (3.5-5.0); Alkaline Phosphatase 79 U/L (39-117); Anion Gap 9 (12-20); Aspartate Amino Transferase 24 U/L (5-37); Bilirubin Total 0.5 mg/dL (0.0-1.0); Blood Urea Nitrogen 10 mg/dL (9-16); Calcium 9.5 mg/dL (8.4-10.2); Carbon Dioxide 30 mmol/L (22-29); Chloride 105 mmol/L (96-108); Creatinine Clr Calc Pharmacy 110.6; Estimated Glomerular Filt Rate > 60; Glucose Random 99 mg/dL (60-115); Potassium 4.2 mmol/L (3.3-5.1); Sodium 140 mmol/L (135-145); Total Protein 7.6 g/dL (6.5-8.0)
--- NOTE | 2021-12-14 16:36 | MHC.HEMONC ---
Pt arrived w/ his for sched Hem f/u appt, went to lab to have labs drawn, VSS, clinical summary was reviewed. Pt continues on daily PO warfarin, w/ dosing schedule managed by [facility] Coumadin clinic. In fact, pt reported having just come from there and reported today's INR was 1.3. He said he has had intermittent swelling of his L calf, which now feels firm on the posterior, also says that today he's having sharp pains 8/10 in his L calf and radiating up to his L anterior thigh, managing the pain w/ PRN tramadol, but not very effectively. He also reports having some bleeding from gums when brushing teeth, nurse confirmed pt knows to brush w/ soft toothbrush. Dr. Menard was updated and came in to meet w/ pt and his , called to arrange an U/S of LLE for him immediately after this appt. Pt added that he will be moving to [place] in a week, but he was booked for f/u appt. Pt was d/c'd from clinic to go upstairs for U/S.
--- NOTE | 2022-03-05 16:34 | HO.HEMONCSCH ---
No show follow-up call. Pt's informed that the family relocated to [place]. Dr Menard is aware of the relocation
== END 2022-03-06 13:19 | disposition home or self-care (01) ==
LOC: HO.ONC 15:40
PROVIDERS: PCP Nurse Practitioner Family; Visit Provider Internal Medicine Medical Oncology
DX: I82.512 Chronic embolism and thrombosis of left femoral vein (principal); I87.009 Postthrombotic syndrome without complications of unspecified extremity; D68.59 Other primary thrombophilia; Z79.01 Long term (current) use of anticoagulants
CPT/HCPCS: 36415; 80053; 85025; 85379; 96372; 99214; J1652

== ENCOUNTER → 2021-12-14 15:42 | Outpatient (BNVA) | payer OTHER, SELFPAY | PROVIDERS: PCP Nurse Practitioner Family; Visit Provider Internal Medicine | DX: Z86.718 Personal history of other venous thrombosis and embolism (principal); Z51.81 Encounter for therapeutic drug level monitoring; Z79.01 Long term (current) use of anticoagulants | CPT/HCPCS: 85610; 99211 ==

== ENCOUNTER 2021-12-14 16:23 | Outpatient (REF) | payer OTHER, SELFPAY ==
--- NOTE | ~2021-12-14 | US_ITS ---
EXAMINATION: US VENOUS ULTRASOUND WITH DOPPLER LOWER EXTREMITY, LEFT CLINICAL INFORMATION: Left lower extremity pain. Follow-up DVT. COMPARISON: Ultrasound left lower extremity venous study 06/05/2021 TECHNIQUE: Ultrasound of the deep veins is performed from the hip to the calf with compression sonography and color and pulse Doppler assessment. Spectral analysis with color-flow imaging is performed. FINDINGS: There is chronic DVT visualized in left superficial femoral proximal, mid, distal and popliteal veins, similar previous study from 06/05/2021. No new areas of DVT seen. There is no Loredo's cyst. US/US venous duplex LE LT IMPRESSION: Chronic DVT demonstrated in the left lower extremity. No new areas of acute DVT seen.
== END 2021-12-14 16:24 | disposition home or self-care (01) ==
LOC: HO.US 16:23
PROVIDERS: PCP Nurse Practitioner Family; Visit Provider Internal Medicine Medical Oncology
DX: I82.4Z9 Acute embolism and thrombosis of unspecified deep veins of unspecified distal lower extremity (principal); R60.0 Localized edema
CPT/HCPCS: 93971